=== PATIENT | male | born 1990 | race Two or more races ===

== ENCOUNTER 2022-05-02 19:57 | Emergency (ER) | payer BC ==
[~2022-05-02] VITALS: Ht 177.8 cm; Wt 79.4 kg
[2022-05-02 20:06] VITALS: BP 128/84
[2022-05-02] MEDS ORDERED: KETOROLAC TROMETHAMINE INJ 30 MG/ML VIAL ONE (20:25)
[2022-05-02] MEDS ORDERED: CYCLOBENZAPRINE 10 MG TABLET ONE (20:25)
[2022-05-02] MEDS ORDERED: KETOROLAC TROMETHAMINE INJ 60 MG/2 ML VIAL IM ONE (20:30)
[2022-05-02] MEDS ORDERED: CYCLOBENZAPRINE 10 MG TABLET PO ONE (20:30)
[2022-05-02] MEDS ORDERED: IBUP-1957 PO (20:49)
[2022-05-02] MEDS ORDERED: CYCL5TAB PO (20:49)
--- NOTE | 2022-05-02 21:03 | NUR ---
Patient discharged to home in stable condition. Written and verbal after care instructions given. Patient verbalizes understanding of instruction.
== END 2022-05-02 21:33 | disposition home or self-care (01) ==
LOC: ER 20:04
DX: S39.012A Strain of muscle, fascia and tendon of lower back, initial encounter (principal); Z79.899 Other long term (current) drug therapy; X50.0XXA Overexertion from strenuous movement or load, initial encounter; Y93.89 Activity, other specified; Y92.89 Other specified places as the place of occurrence of the external cause; Y99.8 Other external cause status
CPT/HCPCS: 99283; 96372; J1885